=== PATIENT | female | born 1945 | race Caucasian/White ===

== ENCOUNTER 2021-09-11 06:45 | Day surgery (SDC) | payer OTHER, SELFPAY ==
[~2021-09-11] VITALS: Ht 160 cm; Wt 57.6 kg
[2021-09-11] MEDS ORDERED: fentaNYL CITRATE/PF 100 MCG/2 ML AMP ONE (06:57)
[2021-09-11] MEDS ORDERED: SIMETHICONE 40 MG/0.6 ML ML ONE (06:57)
[2021-09-11] MEDS ORDERED: MIDAZOLAM HCL 5 MG/5 ML VIAL ONE (06:58)
[2021-09-11] MEDS ORDERED: MEPERIDINE 100 MG INJ. 100 MG/ML VIAL ONE (06:59)
[2021-09-11 14:12] VITALS: BP_SYST 119
== END 2021-09-11 10:30 | disposition home or self-care (01) ==
LOC: SDS 06:45 → SMU 06:46 → SDS 10:30
PROVIDERS: ATTEND Internal Medicine Gastroenterology
DX: D64.9 Anemia, unspecified (principal); D12.2 Benign neoplasm of ascending colon; K57.30 Diverticulosis of large intestine without perforation or abscess without bleeding; K64.4 Residual hemorrhoidal skin tags; F41.9 Anxiety disorder, unspecified; R13.10 Dysphagia, unspecified; I10 Essential (primary) hypertension; E78.5 Hyperlipidemia, unspecified; I48.91 Unspecified atrial fibrillation; Z79.01 Long term (current) use of anticoagulants; Z79.899 Other long term (current) drug therapy; Z20.822 Contact with and (suspected) exposure to COVID-19
CPT/HCPCS: 45385; 88305; 99152; 99153; G0378; J2250; J3010; U0003; J2175